=== PATIENT | male | born 1995 | race Caucasian/White ===

== ENCOUNTER 2021-08-23 12:19 | Emergency (ER) | payer SELFPAY ==
[~2021-08-23] VITALS: Ht 180.3 cm; Wt 90.7 kg
[2021-08-23] MEDS ORDERED: AMOCLA875 PO (13:04)
== END 2021-08-23 13:15 | disposition home or self-care (01) ==
LOC: ER 12:19
DX: K04.7 Periapical abscess without sinus (principal)
CPT/HCPCS: 41800; 99282-25